=== PATIENT | female | born 1995 | race Caucasian/White ===

== ENCOUNTER → 2017-03-12 | Outpatient (CLI) | payer OTHER, SELFPAY | PROVIDERS: Visit Provider Nurse Practitioner Obstetrics & Gynecology | DX: Z34.80 Encounter for supervision of other normal pregnancy, unspecified trimester (principal) | CPT/HCPCS: 86403 ==

== ENCOUNTER → 2017-03-26 17:52 | Outpatient (REF) | payer OTHER, SELFPAY ==
[2017-03-27 11:06] LABS: Microscopic, Urine URINE MICROSCOPIC (MICROSCOPIC)
[2017-03-27 11:46] LABS: Appearance,Urine CLOUDY (Clear); Blood, Urine Negative (Negative); Color,Urine DK YELLOW (Yellow); Glucose,Urine (UA) Negative (Negative); Ketones,Urine TRACE (Negative); Leukocyte Esterase,Urine Negative (Negative); Nitrate,Urine POSITIVE (Negative); PH,Urine 6.5 (5.0-8.5); Protein,Urine 2+ (Negative); Specific Gravity, Urine 1.025 (1.005-1.030); Urobilinogen,Urine 0.2 EU/dl (0.2)
[2017-03-27 12:13] LABS: Bilirubin,Urine Negative (Negative)
[2017-03-27 12:14] LABS: WBC,Urine Occasional #/hpf (0-3)
[2017-03-27 12:15] LABS: Bacteria,Urine 3+ /lpf
== END ==
LOC: LAB 17:52
PROVIDERS: Visit Provider Nurse Practitioner Obstetrics & Gynecology
DX: Y99.9 Unspecified external cause status (principal)
CPT/HCPCS: 81001; 87086

== ENCOUNTER 2017-03-29 11:37 | Inpatient (IN) | payer OTHER, SELFPAY ==
[2017-03-29] VITALS (8 sets, daily range): BP systolic 90–135; BP diastolic 48–90; PULSE 61–67; RESP 18; TEMP 36.3–36.7; O2SAT 98–100; BMI 32.0; BMI 31.4
--- NOTE | 2017-03-29 10:48 | US_ITS ---
US OB LIMITED POSITION, US SD RATIO UMBILCAL ARTERY: BIOPHYSICAL PROFILE Indication: Small for gestational age ORDERING PHYSICIAN: Shaggy Chi MD PATIENT AGE: 21 years FINDINGS: There is a single live fetus present in the cephalic presentation. heart and body motion noted with FHR of 1 35 bpm. The following parameters are obtained: Average ultrasound age is 34 weeks 5 days. Estimated due date by ultrasound is 05/05/2017. Estimated weight is 2307 g. This is 2 percentile by last menstrual period. Previous ultrasound of 11/27/2016 suggested an estimated due date of 04/04/2017 which corresponds more to the estimated due date from last menstrual period. BPD: 34 weeks 6 days OFD: 35 weeks 3 days HC: 34 weeks 5 days AC: 31 weeks 6 days FL: 37 weeks 0 days heart rate: 135 bpm. HC/AC: 1.12. This is elevated. Normal is 0.92-1.05 Cephalic index: 79% FL/BPD: 83% FL/AC: 26% this is elevated with normal 20-24% Amniotic fluid index: 7 Qualitative AFV: 2 breathing movements: 2 Gross body movements: 2 Tone: 2 Biophysical profile score: 8/8 Doppler evaluation of the umbilical artery: SD ratio: 1.9 Resistive index: 0.48 No obvious anomalies evident. Urinary bladder of the fetus is somewhat prominent. This is nonspecific. Placenta: Anterior and grade 2 Cervix: Appears closed and measures Measurement IMPRESSION: Small for gestational age. 2 percentile based on last menstrual period with an estimated weight of 2307 g. There is a single live fetus present in cephalic presentation. Average ultrasound age is 34 weeks 5 days. This is delayed compared to the previous ultrasound and to last menstrual period. Average ultrasound age by last menstrual period is 38 weeks 3 days. The placenta is anterior in implantation and grade 2. Biophysical profile is 8 of 8. Amniotic fluid volume is slightly low with an CYNTHIA of 7
[2017-03-29 12:01] LABS: Microscopic, Urine URINE MICROSCOPIC (MICROSCOPIC)
[2017-03-29 12:03] LABS: Appearance,Urine SL CLOUDY (Clear); Blood, Urine Negative (Negative); Color,Urine DK YELLOW (Yellow); Glucose,Urine (UA) Negative (Negative); Ketones,Urine Negative (Negative); Leukocyte Esterase,Urine Negative (Negative); Nitrate,Urine POSITIVE (Negative); PH,Urine 6.5 (5.0-8.5); Protein,Urine 1+ (Negative)
[2017-03-29 12:11] LABS: Bilirubin,Urine Negative (Negative)
[2017-03-29 12:22] LABS: Bacteria,Urine 4+ /lpf; Mucus,Urine 4+ /lpf; Squamous Epithelial Cell,Urine TNTC #/hpf (0-5)
--- NOTE | 2017-03-29 12:27 | P.PN_ITS ---
Internal Medicine - PN: Subj *Date: 03/29/17 *Time: 12:24 Interval history: She is a 21-year-old 1 para 0 at 38 weeks gestational age. She was seen in the radiology department this morning for an ultrasound and she has a severely growth restricted baby with oligohydramnios. She is also known to have multiple vaginal warts. As result of that we are going to go ahead with a delivery. I discussed the risks of surgery with her family that includes bleeding, infection, injuries to the bowel and bladder. We discussed the rare risk of DVT. All questions were answered and consents were signed. Exam Vital signs and Labs for Last 24 Hours: Urine 03/29/17 Range/Units 11:50 Urine Color Dk yellow (Yellow) Urine Appearance Sl cloudy (Clear) Urine pH 6.5 (5.0-8.5) Ur Specific [place] 1.020 (1.005-1.030) Urine Protein 1+ (Negative) Urine Glucose (UA) Negative (Negative) no acute distress Assessment and Plan (1) IUGR (intrauterine growth retardation), delivered, current hospitalization Current visit: Yes Status: Acute Category: Medical Code(s): O36.5990 - Maternal care for other known or suspected poor growth, unspecified trimester, not applicable or unspecified (2) Oligohydramnios antepartum Current visit: Yes Status: Acute Category: Medical Code(s): O41.00X0 - Oligohydramnios, unspecified trimester, not applicable or unspecified (3) 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
[2017-03-29 12:42] LABS: Basophils % 0.1 % (0.1-2.0); Eosinophils % 0.3 % (0.1-12.0); Hematocrit 35.8 % (37.0-47.0); Hemoglobin 12.3 g/dL (12.2-16.2); Lymphocytes % 29.2 K/mm3 (10-50); Mean Corpuscular HGB Conc 34.2 g/dL (31.8-35.4); Mean Corpuscular Hemoglobin 31.1 pg (27.0-31.2); Mean Corpuscular Volume 90.8 fl (81-99); Mean Platelet Volume 8.6 fl (7.4-10.4); Monocytes # 0.5 K/mm3 (0.1-1.0); Monocytes % 5.1 % (1.7-9.3); Neutrophils # 6.8 K/mm3 (1.8-7.8); Neutrophils % 65.4 % (37.0-80.0); Platelet Count 239 K/mm3 (142-424); Red Blood Count 3.94 M/mm3 (4.20-5.40); Red Cell Distribution Width 13.1 % (11.5-17.5); White Blood Count 10.4 K/mm3 (4.8-10.8)
[2017-03-29 13:36] LABS: Cord Blood PH 7.42 (7.35-7.45)
--- NOTE | 2017-03-29 13:51 | HMH.OPNOTE ---
Date of procedure: 03/29/17 Pre-op Diagnosis:: Oligohydramnios, severe intrauterine growth growth restriction venereal warts Post-op diagnosis:: same Procedure performed:: Primary lower segment transverse section Surgeon:: Shaggy Chi MD Subsea Engineer(s):: Dr. Houser Microbiology Professor:: Dario Sanabria Anesthesia: spinal Estimated blood loss (mL): 600 Clinical Note:: Is a 1-year-old 2 now para 1 aborta 0 who is 38+ weeks gestational age. She had an ultrasound this morning showed severe intrauterine growth restriction as well as oligohydramnios. He also has copious venereal warts within the vagina. I was concerned about having to do an emergency section if we elected to induce her labor. As result of that we elected to perform a primary lower segment transverse section. The risks and benefits of surgery were discussed the patient and her family. Operative findings:: She delivered a liveborn female child at 1:24 PM in the afternoon of March 29, 2017. The baby had a loose nuchal cord. She had Apgars of 7 at 1 minute and 9 at 5 minutes. PH was 7.42. Ovaries and tubes appeared normal as did the uterus. Operative note:: She was taken to the operating room where spinal anesthesia was found be adequate. She was prepped and draped in normal sterile fashion in the supine position with a leftward tilt. A Holley catheter was in the bladder. A Pfannenstiel skin incision was made with knife then carried through to the underlying layer of fascia with cautery. The fascia was opened in the midline with cautery and extended laterally using Jaeger scissors. Negro clamps were applied to the superior aspect of the fascial incision which was tented up and the underlying rectus muscles dissected off using cautery. The Negro clamps were then applied to the inferior aspect of the fascial incision which in a similar fashion was tented up and the underlying rectus muscles dissected off using cautery. The rectus muscles were then in the midline, the peritoneum identified, and entered sharply with Metzenbaum scissors. This incision was then extended superiorly and inferiorly with cautery. We had good visualization of the bladder inferiorly. The bladder peritoneum was then opened in the midline and extended laterally using Metzenbaum scissors. A bladder flap was created digitally. The lower blade of the [place] was inserted so as to push the bladder out of the way. Transverse incision was made through the uterine muscle to the amnion. This incision was then extended laterally using fingers traction. The amnion was entered sharply with knife. The infant's head was then delivered atraumatically. A loose nuchal cord was easily reduced. This was followed by the anterior shoulder and the rest of the 's body atraumatically. The oropharynx and nasopharynx were bulb suctioned. The infant was then handed off to Dr. Agrawal who assigned Apgars of 7 at 1 minute and 9 at 5 minutes. We then obtained cord blood as well as cord pH. The pH was 7.42. Using gentle traction on the cord and countertraction on the fundus I was able to easily deliver the placenta intact. It had a normal three-vessel cord. The uterus was then cleared of clots and debris and exteriorized from the abdominal cavity. Sponge forcep was passed through the cervix to allow drainage. The uterine incision was then closed using running 0 Vicryl suture in a locked fashion. A second layer of the same suture was used to imbricate the first layer. The bladder peritoneum was then closed using running 2-0 Vicryl suture in a locked fashion. The gutters and cul-de-sac were then cleared of clots and debris and the uterus was returned the abdominal cavity. Once again hemostasis was assured. The peritoneum was grasped with Ting clamps and closed using running 2-0 Vicryl suture. The rectus muscles were then reapproximated using running 0 Vicryl suture. The fascia was closed using running
--- NOTE | 2017-03-29 13:55 | P.OP_ITS ---
Date of procedure: 03/29/17 Pre-op Diagnosis:: Oligohydramnios, severe intrauterine growth growth restriction venereal warts Post-op diagnosis:: same Procedure performed:: Primary lower segment transverse section Surgeon:: Shaggy Chi MD Education And Outreach Coordinator(s):: Dr. Houser Relay Checker:: Dario Sanabria Anesthesia: spinal Estimated blood loss (mL): 600 Clinical Note:: Is a 1-year-old 2 now para 1 aborta 0 who is 38+ weeks gestational age. She had an ultrasound this morning showed severe intrauterine growth restriction as well as oligohydramnios. He also has copious venereal warts within the vagina. I was concerned about having to do an emergency section if we elected to induce her labor. As result of that we elected to perform a primary lower segment transverse section. The risks and benefits of surgery were discussed the patient and her family. Operative findings:: She delivered a liveborn female child at 1:24 PM in the afternoon of March 29, 2017. The baby had a loose nuchal cord. She had Apgars of 7 at 1 minute and 9 at 5 minutes. PH was 7.42. Ovaries and tubes appeared normal as did the uterus. Operative note:: She was taken to the operating room where spinal anesthesia was found be adequate. She was prepped and draped in normal sterile fashion in the supine position with a leftward tilt. A Holley catheter was in the bladder. A Pfannenstiel skin incision was made with knife then carried through to the underlying layer of fascia with cautery. The fascia was opened in the midline with cautery and extended laterally using Jaeger scissors. Negro clamps were applied to the superior aspect of the fascial incision which was tented up and the underlying rectus muscles dissected off using cautery. The Negro clamps were then applied to the inferior aspect of the fascial incision which in a similar fashion was tented up and the underlying rectus muscles dissected off using cautery. The rectus muscles were then in the midline, the peritoneum identified, and entered sharply with Metzenbaum scissors. This incision was then extended superiorly and inferiorly with cautery. We had good visualization of the bladder inferiorly. The bladder peritoneum was then opened in the midline and extended laterally using Metzenbaum scissors. A bladder flap was created digitally. The lower blade of the [place] was inserted so as to push the bladder out of the way. Transverse incision was made through the uterine muscle to the amnion. This incision was then extended laterally using fingers traction. The amnion was entered sharply with knife. The infant's head was then delivered atraumatically. A loose nuchal cord was easily reduced. This was followed by the anterior shoulder and the rest of the 's body atraumatically. The oropharynx and nasopharynx were bulb suctioned. The infant was then handed off to Dr. Agrawal who assigned Apgars of 7 at 1 minute and 9 at 5 minutes. We then obtained cord blood as well as cord pH. The pH was 7.42. Using gentle traction on the cord and countertraction on the fundus I was able to easily deliver the placenta intact. It had a normal three-vessel cord. The uterus was then cleared of clots and debris and exteriorized from the abdominal cavity. Sponge forcep was passed through the cervix to allow drainage. The uterine incision was then closed using running 0 Vicryl suture in a locked fashion. A second layer of the same suture was used to imbricate the first layer. The bladder peritoneum was then closed using running 2-0 Vicryl suture in a locked fashion. The gutters and cul-de-sac were then cleared of clots and debris and the uterus w
--- NOTE | 2017-03-29 13:59 | P.PN_ITS ---
[facility] Anesthesia Record Part I Intake, IV Amount: 1,400 Estimated blood loss (mL): 600 Urine output (mL): 100 Blood Products used (#): none Blood Pressure: 90/48 SaO2: 99 Pulse Rate: 62 Respiratory Rate: 18 Temperature: 97.4 F Patient is:: Awake, Stable Stable to PACU at:: 13:52
--- NOTE | 2017-03-29 14:00 | P.PN_ITS ---
[facility] Anesthesia Record Part II Discharge Time: 14:22 Destination: Obstetric PACU nurse assessment reviewed?: Yes Patient Condition:: Good Anesthesia Complications:: None
--- NOTE | 2017-03-29 15:05 | SUR.OPER ---
1324-VIABLE INFANT FEMALE BORN AT THIS TIME
[2017-03-29 15:17] LABS: Amphetamine/Metha Screen,Urine Negative ng/mL (<1000); Barbiturates Screen,Urine Negative ng/mL (<200); Benzodiazepines Screen,Urine Negative ng/mL (200); Cannabinoid Screen,Urine Positive ng/mL (<50); Cocaine Screen,Urine Negative ng/g (<300); Methadone Screen,Urine Negative ng/mL (<300); Opiate Screen,Urine Negative ng/mL (<300); Phencyclidine Screen,Urine Negative ng/mL (<25)
--- NOTE | 2017-03-29 15:48 | SUR.PHASEI ---
1430-PT TRANSPORTED TO OB ROOM 274 [facility]ITAL BED W/RAILS UP AND LEFT IN CARE OF MEME [place] & MEME ERIC. BED LOCKED IN LOWEST POSITION. FAMILY AT BEDSIDE. VSS. PT STABLE.
[2017-03-30 06:31] LABS: Hematocrit 30.8 % (37.0-47.0)
[2017-03-30 07:07] LABS: Hemoglobin 10.5 g/dL (12.2-16.2)
--- NOTE | 2017-03-30 09:07 | HMH.PNOBGP) ---
OB - PN: A/P (1) IUGR (intrauterine growth retardation), delivered, current hospitalization Start date: 03/30/17 Start time: 09:13 Status: Acute Assessment and plan: Resolved with delivery of Current Visit: Yes (2) Oligohydramnios antepartum Start date: 03/30/17 Start time: 09:15 Status: Acute Assessment and plan: Resolved with delivery of Current Visit: Yes - Plan day: 1 Plan: routine postop care (Patient is a 21 yo on POD #1 s/p C/S for IUGR and oligo at term. Recovering well. Continue RPOC.) - Time Spent With Patient Total time spent is greater than 50% in coordination of care (as documented) at patient's floor/unit and/or counseling patient: less than 15 minutes OB - PN: Subj Interval history: She is a 21-year-old 1 para 0 at 38 weeks gestational age. She was seen in the radiology department this morning for an ultrasound and she has a severely growth restricted baby with oligohydramnios. She is also known to have multiple vaginal warts. As result of that we are going to go ahead with a delivery. I discussed the risks of surgery with her family that includes bleeding, infection, injuries to the bowel and bladder. We discussed the rare risk of DVT. All questions were answered and consents were signed. Narrative: Patient without complaints today. She is tolerating a regular diet. Ambulating and voiding without difficulty. Lochia about equal to menses. No acute issues overnight. OB - PN: Obj Exam Vital signs: Temp Pulse Resp BP Pulse Ox 97.3 F L 65 18 121/67 100 03/29/17 14:30 03/29/17 14:30 03/29/17 14:30 03/29/17 14:30 03/29/17 14:30 - Constitutional no acute distress, obese - Routine Respiratory Exam Present: CTA bilaterally - Routine Cardiovascular Exam Present: RRR - Routine Abdominal Exam Present: soft, normoactive bowel sounds Comments: incision: clean and dry with bandage in place - Urinary Catheter Management Holley Cath placed during this visit: yes Urethral indwelling: No Insertion date: 03/29/17 Insertion time: 12:25 OB - PN: Obj Data - Labs CBC & Chem 7: 03/30/17 06:00 Labs: Laboratory Results - last 24 hr 03/29/17 03/29/17 03/29/17 11:45 11:50 12:35 WBC 10.4 K/mm3 K/mm3 (4.8-10.8) RBC 3.94 M/mm3 L M/mm3 (4.20-5.40) Hgb 12.3 g/dL g/dL (12.2-16.2) Hct 35.8 % L % (37.0-47.0) MCV 90.8 fl fl (81-99) MCH 31.1 pg pg (27.0-31.2) MCHC 34.2 g/dL g/dL (31.8-35.4) RDW 13.1 % % (11.5-17.5) Plt Count 239 K/mm3 K/mm3 (142-424) MPV 8.6 fl fl (7.4-10.4) Neut % (Auto) 65.4 % % (37.0-80.0) Lymph % (Auto) 29.2 K/mm3 K/mm3 (10-50) [place] % (Auto) 5.1 % % (1.7-9.3) Eos % (Auto) 0.3 % % (0.1-12.0) Baso % (Auto) 0.1 % % (0.1-2.0) Neut # (Auto) 6.8 K/mm3 K/mm3 (1.8-7.8) Lymph # (Auto) 3.0 K/mm3 K/mm3 (0.7-4.5) [place] # (Auto) 0.5 K/mm3 K/mm3 (0.1-1.0) Eos # (Auto) 0.0 K/mm3 K/mm3 (0.0-0.4) Baso # (Auto) 0.0 K/mm3 K/mm3 (0-0.2) Cord ABG pH Urine Color Dk yellow (Yellow) Urine Appearance Sl cloudy (Clear) Urine pH 6.5 (5.0-8.5) Ur Specific [place] 1.020 (1.005-1.030) Urine Protein 1+ (Negative) Urine Glucose (UA) Negative (Negative) Urine Ketones Negative (Negative) Urine Blood Negative (Negative) Urine Nitrate Positive (Negative) Urine Bilirubin Negative (Negative) Urine Urobilinogen 1.0 EU/dl EU/dl (0.2) Ur Leukocyte Esterase Negative (Negative) Urine WBC 3-5 #/hpf #/hpf (0-3) Ur Squamous Epith Cells Tntc #/hpf #/hpf (0-5) Urine Bacteria 4+ /lpf
--- NOTE | 2017-03-30 09:10 | P.PN_ITS ---
OB - PN: A/P (1) IUGR (intrauterine growth retardation), delivered, current hospitalization Start date: 03/30/17 Start time: 09:13 Status: Acute Assessment and plan: Resolved with delivery of Current Visit: Yes (2) Oligohydramnios antepartum Start date: 03/30/17 Start time: 09:15 Status: Acute Assessment and plan: Resolved with delivery of Current Visit: Yes - Plan day: 1 Plan: routine postop care (Patient is a 21 yo on POD #1 s/p C/S for IUGR and oligo at term. Recovering well. Continue RPOC.) - Time Spent With Patient Total time spent is greater than 50% in coordination of care (as documented) at patient's floor/unit and/or counseling patient: less than 15 minutes OB - PN: Subj Interval history: She is a 21-year-old 1 para 0 at 38 weeks gestational age. She was seen in the radiology department this morning for an ultrasound and she has a severely growth restricted baby with oligohydramnios. She is also known to have multiple vaginal warts. As result of that we are going to go ahead with a delivery. I discussed the risks of surgery with her family that includes bleeding, infection, injuries to the bowel and bladder. We discussed the rare risk of DVT. All questions were answered and consents were signed. Narrative: Patient without complaints today. She is tolerating a regular diet. Ambulating and voiding without difficulty. Lochia about equal to menses. No acute issues overnight. OB - PN: Obj Exam Vital signs: Temp Pulse Resp BP Pulse Ox 97.3 F L 65 18 121/67 100 03/29/17 14:30 03/29/17 14:30 03/29/17 14:30 03/29/17 14:30 03/29/17 14:30 - Constitutional no acute distress, obese - Routine Respiratory Exam Present: CTA bilaterally - Routine Cardiovascular Exam Present: RRR - Routine Abdominal Exam Present: soft, normoactive bowel sounds Comments: incision: clean and dry with bandage in place - Urinary Catheter Management Holley Cath placed during this visit: yes Urethral indwelling: No Insertion date: 03/29/17 Insertion time: 12:25 OB - PN: Obj Data - Labs CBC & Chem 7: 03/30/17 06:00 Labs: Laboratory Results - last 24 hr 03/29/17 03/29/17 03/29/17 11:45 11:50 12:35 WBC 10.4 K/mm3 K/mm3 (4.8-10.8) RBC 3.94 M/mm3 L M/mm3 (4.20-5.40) Hgb 12.3 g/dL g/dL (12.2-16.2) Hct 35.8 % L % (37.0-47.0) MCV 90.8 fl fl (81-99) MCH 31.1 pg pg (27.0-31.2) MCHC 34.2 g/dL g/dL (31.8-35.4) RDW 13.1 % % (11.5-17.5) Plt Count 239 K/mm3 K/mm3 (142-424) MPV 8.6 fl fl (7.4-10.4) Neut % (Auto) 65.4 % % (37.0-80.0) Lymph % (Auto) 29.2 K/mm3 K/mm3 (10-50) [place] % (Auto) 5.1 % % (1.7-9.3) Eos % (Auto) 0.3 % % (0.1-12.0) Baso % (Auto) 0.1 % % (0.1-2.0) Neut # (Auto) 6.8 K/mm3 K/mm3 (1.8-7.8) Lymph # (Auto) 3.0 K/mm3 K/mm3 (0.7-4.5) [place] # (Auto) 0.5 K/mm3 K/mm3 (0.1-1.0) Eos # (Auto) 0.0 K/mm3 K/mm3 (
--- NOTE | 2017-03-30 12:04 | HMH.PHAVTE ---
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
--- NOTE | 2017-03-31 09:00 | HMH.PNOBGP) ---
OB - PN: A/P (1) IUGR (intrauterine growth retardation), delivered, current hospitalization Start date: 03/31/17 Start time: 09:05 Status: Acute Assessment and plan: Now resolved s/p delivery. Current Visit: Yes (2) Oligohydramnios antepartum Start date: 03/31/17 Start time: 09:05 Status: Acute Assessment and plan: Now resolved s/p delivery Current Visit: Yes - Plan day: 2 Plan: routine postop care Comments: Patient is a 21 yo on POD #2, s/p 1 C/S. 1. S/P C/S: Patient recovering well. Cont RPOC. 2. well being: baby still doing well 3. FEN: Didier reg diet, HLIV 4. Pain: cont PO pain meds 5. Dispo: to home tomorrow Leesa Tirado MD - Time Spent With Patient Total time spent is greater than 50% in coordination of care (as documented) at patient's floor/unit and/or counseling patient: less than 15 minutes OB - PN: Subj Interval history: Patient is a 21 yo on POD #2, s/p 1 C/S secondary to IUGR and oligohydramnios at term. She continues to do well today. She reports + flatus. She is didier a reg diet. She is ambulating and voiding without difficulty. She does reports some pain with movement on her right side. No acute events overnight. Patient comments: no complaints, pain well controlled, tolerating diet, flatus present baby status: doing well, bottle feeding well feeding status: exclusively bottle feeding OB - PN: Obj Exam Vital signs: Temp Pulse Resp BP Pulse Ox 97.3 F L 65 18 121/67 100 03/29/17 14:30 03/29/17 14:30 03/29/17 14:30 03/29/17 14:30 03/29/17 14:30 - Constitutional no acute distress, obese - Routine Respiratory Exam Present: CTA bilaterally - Routine Cardiovascular Exam Present: RRR - Routine Abdominal Exam Present: soft, normoactive bowel sounds Fundus: Present: firm Comments: Incision: c/d/i - Urinary Catheter Management Holley Cath placed during this visit: yes Urethral indwelling: No Insertion date: 01/05/18 Insertion time: 12:25 OB - PN: Obj Data - Labs CBC & Chem 7: 03/30/17 06:00
--- NOTE | 2017-04-01 08:29 | PC.NURSE ---
MAR ENTRY PER Nelly KRAMER RN FROM DOWNTIME DOCUMENTATION FOR Demarco KING RN.
--- NOTE | 2017-04-01 09:16 | HMH.DCSUM ---
General - General Admission date: 03/29/17 Discharge date: 04/01/17 HPI HPI: She is a 21-year-old 2 para 1 abortus 1 weeks gestational age. She had an ultrasound and was found to be small for gestational age. She also had marginal amniotic fluid. As a result of that we admitted her. She also had severe vulvar condylomata and vaginal condylomata. We elected to perform a primary lower segment transverse section. Objective Vital signs: Temp Pulse Resp BP Pulse Ox 97.3 F L 65 18 121/67 100 03/29/17 14:30 03/29/17 14:30 03/29/17 14:30 03/29/17 14:30 03/29/17 14:30 no acute distress Hospital Course Hospital Course: On March 29, 2017 she underwent a primary lower segment transverse section. She delivered a liveborn female child at 1:24 PM in the afternoon of March 29, 2017. The baby weighed 4 lbs. 15 oz. and was 17-1/2 inches long. She had Apgars of 7 at 1 minute and 9 at 5 minutes. She has done well and has remained afebrile throughout her hospitalization. She is eating and drinking and ambulating. She is bottlefeeding. Her lochia is normal. Her pain is well controlled. She has a positive blood, she is rubella immune and was group B Streptococcus negative. Customer Service Correspondence Clerk is Dr. Agrawal. 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
--- NOTE | 2017-04-01 11:27 | SW/DCPLANNER ---
RECEIVED A CALL FROM THE OB DEPT STATING THIS PATIENT IS BEING DISCHARGED AND WANTED TO KNOW IF ANYONE FROM THE DEPT IS COMING TO SEE HER PRIOR TO LEAVING.. MS FIERRO PRESENTED INTO THE HOSPITAL 38 WEEKS IUP, PATIENT WAS TAKEN TO SURGERY FOR A AND THUS A LIVE BORN FEMALE WAS DELIVERED..SHE WAS + FOR MARIJUANA AT TIME OF ADMISSION, INFANT WAS - BUT THE CORD WAS SENT OFF... PATIENT STATED SHE SMOKED 2 PKS OF CIGARETTES A DAY AND DRANK A SIX PK OF BEER FOR SEVERAL MONTHS.. SHE STATED SHE IS GOING TO HER MOTHERS WHEN DISCHARGED. SHE SAID SHE CAN NOT RETURN BACK WHERE SHE WAS STAYING BECAUSE THEY WERE DOING DRUGS THERE...THE CASE HAS BEEN ASSIGNED TO [facility] AND SOMEONE WILL BE HERE TO SEE PATIENT TODAY...
--- NOTE | 2017-04-01 11:37 | SW/DCPLANNER ---
AND ID # WAS GIVEN ON THIS CASE [id number]...IT HAS BEEN ACCEPTED.
--- NOTE | 2017-04-02 10:31 | SW/DCPLANNER ---
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 Grandparents had identification with them to discharge the home with them....
== END 2017-04-01 18:55 | disposition home or self-care (01) | DRG 765 ==
LOC: OB 11:37
PROVIDERS: Admitting Provider Nurse Practitioner Obstetrics & Gynecology; Family Provider Nurse Practitioner Obstetrics & Gynecology; Visit Provider Nurse Practitioner Obstetrics & Gynecology
PROC: 10D00Z1 Extraction of Products of Conception, Low, Open Approach (ICD-10-PCS; CPT 59514; principal; 2017-03-29 13:00)
DX: O41.03X0 Oligohydramnios, third trimester, not applicable or unspecified (principal); O98.32 Other infections with a predominantly sexual mode of transmission complicating childbirth; O36.5930 Maternal care for other known or suspected poor fetal growth, third trimester, not applicable or unspecified; A63.0 Anogenital (venereal) warts; Z37.0 Single live birth; Z3A.38 38 weeks gestation of pregnancy
CPT/HCPCS: 59514; 36415; 59025; 76815; 76819; 76820; 80305; 81001; 82800; 85014; 85018; 85025; 86850; 87086; 88307; J2405

== ENCOUNTER → 2018-07-24 13:40 | Outpatient (CLI) | payer OTHER, SELFPAY ==
--- NOTE | 2018-07-24 13:43 | US_ITS ---
US OB <= 14 weeks fetus HISTORY: ITS.REASON: US OB Dates ORDERING PHYSICIAN: Shaggy Chi MD PATIENT AGE: 22 years COMPARISON: None FINDINGS: An intrauterine gestational sac is present with a pole with a crown-rum US OB <= 14 weeks fetus: INDICATION: ITS.REASON: US OB Dates ORDERING PHYSICIAN: Shaggy Chi MD PATIENT AGE: 22 years TECHNIQUE: ultrasound transabdominal scanning. COMPARISON: No previous relevant studies. FINDINGS: Single viable intrauterine gestation. Transverse position. Placenta: Poaterior placenta grade 1. There is average amount fluid. Measurements: Average ultrasound age 15w6d. Gestational Age 14w2d. Estimated due date by ultrasound age 1001/09/2019. Estimated weight 133 grams. BPD = 15w6d OFD = 14w2d HC = 15w4d AC = 16w0d FL = 15w5d Growth Percentile= 98 Heart Rate = 160 HC/AC is 1.15 (1.14-1.31). CI is 78% (70-86%). FL/BPD is 60%. FL/AC is 19%. IMPRESSION: There is a single live fetus in transverse presentation with an average ultrasound age of 15 weeks and 6 days. Estimated due date by ultrasound is 01/09/2019. All parameters correlate. heart and body motion noted.
[2018-07-24 14:58] LABS: Basophils % 0.1 % (0.1-2.0); Eosinophils % 0.1 % (0.1-12.0); Lymphocytes # 2.6 K/mm3 (0.7-4.5); Lymphocytes % 24.8 % (10-50); Mean Corpuscular HGB Conc 34.2 g/dL (31.8-35.4); Mean Corpuscular Hemoglobin 30.8 pg (27.0-31.2); Mean Corpuscular Volume 90.2 fl (81-99); Mean Platelet Volume 7.5 fl (7.4-10.4); Monocytes # 0.4 K/mm3 (0.1-1.0); Neutrophils # 7.6 K/mm3 (1.8-7.8); Neutrophils % 71.1 % (37.0-80.0); Platelet Count 242 K/mm3 (142-424); Red Blood Count 3.89 M/mm3 (4.20-5.40); Red Cell Distribution Width 13.2 % (11.5-17.5); White Blood Count 10.7 K/mm3 (4.8-10.8)
[2018-07-26 08:49] LABS: Rapid Plasma Reagin Ab Titer Non Reactive (NonRea<1:1)
[2018-07-26 20:35] LABS: HIV Screen 4th Generation wRfx Non Reactive (Non Reactive); Hepatitis B Surface Antigen Negative (Negative); Hepatitis C Antibody <0.1 s/co ratio (0.0-0.9); Rubella Antibodies, IgG 2.19 index (Immune >0.99)
== END ==
PROVIDERS: Visit Provider Nurse Practitioner Obstetrics & Gynecology
DX: O26.841 Uterine size-date discrepancy, first trimester (principal); Z34.90 Encounter for supervision of normal pregnancy, unspecified, unspecified trimester
CPT/HCPCS: 36415; 76801; 76805; 85025; 86592; 86703; 86762; 86850; 87340; 87380; G0432

== ENCOUNTER → 2018-08-27 08:52 | Outpatient (CLI) | payer OTHER, SELFPAY ==
--- NOTE | 2018-08-27 09:08 | US_ITS ---
US OB /maternal detail: INDICATION: ITS.REASON: US OB Complete ORDERING PHYSICIAN: Shaggy Chi MD PATIENT AGE: 22 years TECHNIQUE: ultrasound transabdominal scanning. COMPARISON: No previous relevant studies. FINDINGS: Single viable intrauterine gestation. Ceph position. Placenta: Post placenta grade 1. There is average amount fluid. The cervix appears satisfactory. Closed and measuring 3 cm in length. Complete survey performed and was unremarkable on the submitted images as in PACS. No discrete anomalies identified on survey imaging by technologist. Active fetus. Three-vessel cord with satisfactory umbilical cord insertion. 4- chamber heart noted. One image is submitted showing possible small amount fluid in the pericardial region Survey of brain & ventricles unremarkable. Face and neck survey unremarkable. Diaphragm and chest views unremarkable. Abdomen: Both kidneys noted and unremarkable. Stomach noted and satisfactory. Spine: Survey of the spine satisfactory with no anomalies identified nor imaged. Both arms and legs noted. Amniotic Fluid: Adequate. Maternal adnexa: No significant findings. Measurements: Average ultrasound age 20w0d. Gestational Age 20w5d. Estimated due date by ultrasound age 1001/12/2019. Estimated weight 335 grams. BPD = 21w1d OFD = 19w5d HC = 19w3d AC = 20w5d FL = 19w5d Growth Percentile= 18 Heart Rate = 150 Cerebellum = 20w1d Humerus = 19w6d HC/AC is 1.08 (1.09-1.26). CI is 88% (70-86%). FL/BPD is 62%. FL/AC is 20%. IMPRESSION: There is a single live fetus which is in cephalic presentation. Average ultrasound age is 20 weeks and 0 days. All parameters correlate. There was a question of minimal amount of pericardial fluid. Follow-up may confirm. Fetus is active with no other significant anomalies evident. Please see above for detail
== END ==
PROVIDERS: Visit Provider Nurse Practitioner Obstetrics & Gynecology
DX: Z36.0 Encounter for antenatal screening for chromosomal anomalies (principal)
CPT/HCPCS: 76811

== ENCOUNTER 2020-05-15 16:02 | Emergency (ER) | payer OTHER, SELFPAY ==
[2020-05-15 16:04] VITALS: BP 146/91; PULSE 92; RESP 18; TEMP 37.1; O2SAT 99; BMI 33.6
--- NOTE | 2020-05-15 16:27 | XR_ITS ---
PROCEDURE: XR CHEST 2V CLINICAL HISTORY: cough COMPARISON: CR CXR CHEST(2 VIEWS-NOT PORTABLE) from 05/15/2015 FINDINGS: The cardiomediastinal silhouette and pulmonary vascularity are within normal limits. The lungs are clear without infiltrates, suspicious nodules, or pleural effusions. There is an old healed fracture with mild deformity right 7th rib posterior axillary line. No acute bony abnormalities. IMPRESSION: No acute findings. Dictated by: Dr. Sreedhar Jules MD 05/15/2020 19:23 Dr. Sreedhar Jules MD in [place] 05/15/2020 19:23
--- NOTE | 2020-05-15 16:30 | [facility].EDGENADL ---
ED Disposition Clinical Impression: Acute bronchitis Qualifiers: Bronchitis organism: unspecified organism Qualified Code(s): J20.9 - Acute bronchitis, unspecified Disposition: Home, Self-Care Condition on Discharge: Good Instructions: DI for Acute Bronchitis Additional Instructions: Zithromax and Tessalon Perles as prescribed. Quarantine yourself until you obtain your COVID-19 test result. You will be called with the result. Additional instructions for ACUTE BRONCHITIS: Use Tylenol or Ibuprofen for pain or fever. Rest and plenty of fluids. Return immediately if you have an uncontrollable fever greater than 102 degrees, severe headache or neck stiffness, difficulty breathing or shortness of breath, persistent vomiting, severe sore throat or inability to swallow. See your physician if not improving in 4-5 days. Prescriptions: Benzonatate [Tessalon Perle 100mg Cap] 100 mg PO TIDP PRN #20 cap PRN Reason: Cough [facility]: [id number] Azithromycin [Zithromax 250mg tab] 250 mg PO DIRECTED #6 tab Transmission Status: [id number] Referrals: Jenny Dickens PA [Primary Care Provider] - - Critical Care Critical Care Time: No Attestation: On 05/15/20, the high probability of a clinically significant, sudden or life threatening deterioration of the following system(s) required my full and direct attention, intervention and personal management. The time I documented below is in addition to time spent performing reported procedures but includes the following listed in this critical care notation. Medical Decision Making - Pravin Inquiry Pt receiving controlled substance: No Vital Signs: 05/15/20 16:04 05/15/20 16:43 05/15/20 17:04 Temperature 98.7 F Temperature Source Oral Pulse Rate Pulse Rate [Left Radial] 92 H 83 79 Respiratory Rate 18 17 Blood Pressure Blood Pressure [Right Arm] 146/91 H 128/63 144/71 H Blood Pressure Mean [Right Arm] 109 84 95 Blood Pressure Source Blood Pressure Source [Right Arm] Automatic Cuff Automatic Cuff Blood Pressure Position Blood Pressure Position [Right Arm] Sitting Sitting 02 Sat by Pulse Oximetry 99 99 98 Oxygen Delivery Method Room Air Room Air Room Air 05/15/20 17:28 Temperature 98.2 F Temperature Source Oral Pulse Rate 74 Pulse Rate [Left Radial] Respiratory Rate 20 Blood Pressure 120/73 Blood Pressure [Right Arm] Blood Pressure Mean [Right Arm] Blood Pressure Source Automatic Cuff Blood Pressure Source [Right Arm] Blood Pressure Position Sitting Blood Pressure Position [Right Arm] 02 Sat by Pulse Oximetry Oxygen Delivery Method Room Air - Lab Data Lab Results 05/15/20 16:30: Serum HCG, Qual Negative Orders (Tests/Meds): ORDERS Category Date Time Status XR chest 2V Stat Exams 05/15/20 16:27 Taken Full Resp Panel w/COVID ([facility]) Routine Lab 05/15/20 16:30 Received - Radiology Data #1 Image(s): Chest Image Reviewed: Yes I reviewed the patient's radiology image old right rib fracture, NAD General Adult HPI - General Chief complaint: Nausea/Vomiting/Diarrhea Stated complaint: Possible Preg,,Cough and Diarrhea Time Seen by Provider: 05/15/20 16:20 Mode of Arrival: Ambulatory Limitations: No Limitations Description of Symptoms (Recalled from ER Triage Doc. by RN): states she is 3 days late on her period and was told that since she had her tubes clamped she would need a blood test to see if she was in her tubes. c/o cough for over a week and SHARMA with 4 episodes of diarrhea that started this morning. - History of Present Illness HPI narrative: Complains of a cough and also wants to see if she is . She has had a cough for 1 week. Denies exposure to COVID-19. She has not had COVID-19. She has not had COVID-19 vaccine. She has some slight nasal congestion. No fever. She says that she is 3 days late on her menses. She has had
[2020-05-15 16:41] LABS: Adenovirus,PCR Not Detected (NotDetected); Bordetella Pertussis Not Detected (NotDetected); Chlamydophila Pneumoniae, PCR Not Detected (NotDetected); Coronavirus 19, PCR Not Detected (NotDetected); Coronavirus 229E Not Detected (NotDetected); Coronavirus NL63 Not Detected (NotDetected); Coronavirus OC43 Not Detected (NotDetected); Coronovirus HKU1,PCR Not Detected (NotDetected); Human Metapneumovirus Not Detected (NotDetected); Influenza A, PCR Not Detected (NotDetected); Influenza AH1, 2009 Not Detected (NotDetected); Influenza AH1, PCR Not Detected (NotDetected); Influenza AH3,PCR Not Detected (NotDetected); Influenza B, PCR Not Detected (NotDetected); Mycoplasma Pneumoniae, PCR Not Detected (NotDetected); Parainfluenza 1, PCR Not Detected (NotDetected); Parainfluenza 2, PCR Not Detected (NotDetected); Parainfluenza 3, PCR Not Detected (NotDetected); Parainfluenza 4, PCR Not Detected (NotDetected); Respiratory Syncytial Virus Not Detected (NotDetected); Rhinovirus/Enterovirus Not Detected (NotDetected)
[2020-05-15 16:43] VITALS: BP 128/63; PULSE 83; O2SAT 99
[2020-05-15 17:04] VITALS: BP 144/71; PULSE 79; RESP 17; O2SAT 98
[2020-05-15 17:05] LABS: HCG Qualitative, Serum Negative (Negative)
--- NOTE | 2020-05-15 17:15 | PC.NURSE ---
Pt returned from rad.
[2020-05-15 17:28] VITALS: BP 120/73; PULSE 74; RESP 20; TEMP 36.8; O2SAT 98
== END 2020-05-15 17:29 | disposition home or self-care (01) ==
PROVIDERS: Emergency Provider Emergency Medicine; PCP Nurse Practitioner Family
DX: Z20.822 Contact with and (suspected) exposure to COVID-19 (principal); J20.9 Acute bronchitis, unspecified; F41.9 Anxiety disorder, unspecified; F17.210 Nicotine dependence, cigarettes, uncomplicated
CPT/HCPCS: 71046; 84703; 87581; 87633; 87798; 99283

== ENCOUNTER → 2020-12-16 14:06 | Outpatient (CLI) | payer OTHER, SELFPAY ==
--- NOTE | 2020-12-16 14:07 | US_ITS ---
PROCEDURE: US TRANSVAGINAL CLINICAL INDICATION: pelvic pain COMPARISON: US TVP US TRANSVAGINAL PREG from 10/05/2016 FINDINGS: UTERUS: 8cm x 5cmx 3cm with a combined endometrial thickness of 8.5mm LEFT OVARY: [id number] with a volume of 9.8ml. RIGHT OVARY: [id number] with a volume of 9.7ml. No free fluid. No adnexal mass. No uterine mass IMPRESSION: Negative pelvic ultrasound Dictated by: Javon Kenney MD 12/16/2020 16:24 Javon Kenney MD in [facility] 12/16/2020 16:24
== END ==
PROVIDERS: PCP Nurse Practitioner Family; Visit Provider Obstetrics & Gynecology
DX: R10.2 Pelvic and perineal pain (principal)
CPT/HCPCS: 76830

== ENCOUNTER → 2021-05-10 15:26 | Outpatient (CLI) | payer OTHER, SELFPAY ==
[2021-05-13 12:10] LABS: Neisseria gonorrhoeae, NAA Negative (Negative)
== END ==
PROVIDERS: Visit Provider Nurse Practitioner Obstetrics & Gynecology
DX: R10.2 Pelvic and perineal pain (principal); Z72.51 High risk heterosexual behavior
CPT/HCPCS: 87491; 87591